=== PATIENT | female | born 2000 | race Caucasian/White ===

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

== ENCOUNTER 2019-01-20 00:36 | Emergency (ER) | payer MEDICAID, OTHER ==
[2019-01-20 03:38] LABS: URINE PH (Dip) POC 7.5 (5.0-8.5)
[2019-01-20 03:38] LABS: URINE BLOOD (Dip) POC 2+ (NEGATIVE); URINE GLUCOSE (Dip) POC Negative (NEGATIVE); URINE KETONES (Dip) POC Negative (NEGATIVE); URINE LEUKOCYTE EST (Dip) POC Negative (NEGATIVE); URINE NITRITE (Dip) POC Negative (NEGATIVE); URINE TOTAL PROTEIN POC Negative (NEGATIVE)
[2019-01-20] MEDS: DIAZEPAM 5 MG TAB PO (04:17)
[2019-01-20] MEDS: KETOROLAC 60 MG INJ IM (04:17)
== END 2019-01-20 04:42 | disposition home or self-care (01) ==
LOC: FTE 00:36
DX: R07.89 Other chest pain (principal)
CPT/HCPCS: 81003; 81025; 93005; 96372; 99284-25